=== PATIENT | male | born 1970 | race Caucasian/White ===

== ENCOUNTER 2023-02-22 14:05 | Observation (INO) | payer SELFPAY ==
[2023-02-22] VITALS (10 sets, daily range): BP systolic 110–172; BP diastolic 79–101; PULSE 73–99; RESP 16–22; TEMP 36.9–37; O2SAT 96–100; BMI 22.2
--- NOTE | 2023-02-22 14:14 | ED_ITS ---
HPI - GI Bleed General: Chief complaint: GI Bleed Stated complaint: GI Bleed Time Seen by Provider: 02/22/23 14:06 History of Present Illness: This patient is a 52 year old presenting with two days of epigastric pain and coffee ground emesis. He has not been able to eat and has been drinking fluids, but throws them up. He denies blood in the emesis, but it is black and granular. He has not had a BM since the symptoms started. He denies chest pain, SOB, lightheadedness. He denies prior surgeries. He denies any PMH and takes no medications. He does not drink alcohol. He thinks that he probably has had ulcers based on symptoms - but he doesn't take any medications for the symptoms. He went to the clinic in [place] and was sent to the ED for evaluation of a suspected GI bleed. [facility] ED PFSH: Medical History (Updated 02/22/23 @ 23:49 by Fela Hogue MD) Lactic acid acidosis Physical Exam 2 Const: COMMON NORMALS: no acute distress, patient oriented x3, no limitations and alert GENERAL APPEARANCE: cooperative, comfortable and appears older than stated age HENMT: HEAD & SCALP: normal to inspection FACE & SINUS: normal facial exam TEETH & GINGIVA: Yes poor dentition Eye: GENERAL EYE: appearance normal, both eyes and all related structures Neck/C-Spine: COMMON NORMALS: supple, no meningeal signs and no JVD Chest: COMMONS NORMALS: normal inspection of the chest Resp: COMMON NORMALS: normal respiratory effort, No use of accessory muscles and clear to auscultation bilaterally AUSCULTATION: clear to auscultation bilaterally Cardio: COMMON NORMALS: no JVD, regular rate, regular rhythm and No murmurs p resent (Cardio) RATE: regular rate RHYTHM: regular rhythm GI: COMMON NORMALS: Normal to inspection, nondistended, normoactive bowel sounds present, Soft to palpation and non-tender INSPECTION: Yes normal to inspection AUSCULTATION: Yes normoactive bowel sounds PALPATION: Yes Soft to palpation Back/Pelvis: COMMON NORMALS: thoracic and lumbar spine normal to inspection Extremity: COMMON NORMALS: normal to inspection Neuro: COMMON NORMALS: patient oriented x3, moves all extremities, no focal motor deficits and no sensory deficits noted SENSORIUM/ORIENTATION: Yes alert MENINGEAL SIGNS: Yes no meningeal signs Psych: COMMON NORMALS: mental status grossly normal, cooperative and normal affect Skin: COMMON NORMALS: no rashes or lesions noted and turgor normal GENERAL SKIN EXAM: no rashes or lesions noted, turgor normal and pallor Course Vital Signs: Vital signs: Vital Signs Temperature 98.6 F 02/22/23 19:49 Pulse Rate 94 02/22/23 19:49 Respiratory Rate 16 02/22/23 19:49 Blood Pressure 119/79 02/22/23 19:49 Pulse Oximetry 98 02/22/23 19:49 Oxygen Delivery Me thod Room Air 02/22/23 21:15 MDM - GI Bleed Medical Decision Making Awake, alert and in no distress. He was given zofran in the ambulance and reports improvement in his nausea. Vitals are good - abdomen is benign. He is having ongoing vomiting for two days, and has epigastric burning associated wtih black coffee ground emesis. Labs including CBC, CMP, LFT, PT, lactic pending. Pepcid IV given. He may require hospitalization for further evaluation of the source of the coffee ground emesis. CT with thickening of the esophagus and stomach, fluid filled suggested delayed emptying or obstruction. Discussed with motion graphics designer surgery - they recommend admit to hospitalist. Likely IV fluids, PPIs, possible scope in the morning. Lab Data 02/22/23 19:55 02/22/23 14:50 Radiology Impressions Abdomen/Pelvis CT 02/22/23 15:25 IMPRESSION: 1. Mild diffuse fatty infiltration liver. 2. Fluid distended distal esophagus with small esophageal hiatal hernia. This can be followed up with endoscopy. 3. Submucosal enhancement in the distal esophagus and stomach compatible with esophagitis and gastritis. 4. Fluid distended stomach with air-fluid level. 5. Patulous rectosigmoid with constipation. 6. Normal appendix in the RIGHT lower quadrant. 7. No other acute findings. Chest X-Ray 02/22/23 18:03 IMPRESSION: 1. No acute cardiopulmonary process. 2. Incidental/nonacute findings are listed in the report. Laboratory Results WBC 20.9 10^3/uL (4.0-10.0) H 02/22/23 14:50 RBC 5.27 10^6/uL (4.1-5.3) 02/22/23 14:50 Hgb 16.6 g/dL (11.7-16.6) 02/22/23 14:50 Hct 49.8 % (42.0-52.0) 02/22/23 14:50 MCV 94.5 fl (80-94) H 02/22/23 14:50 MCH 31.5 pg (28.0-34.0) 02/22/23 14:50 MCHC 33.3 g/dL (30.0-36.0) 02/22/23 14:50 RDW 13.2 % (12.1-15.1) 02/22/23 14:50 Plt Count 328 10^3/cmm (130-400) 02/22/23 14:50 MPV 10.3 fL (7.4-10.4) 02/22/23 14:50 Neut % (Auto) 78.9 % 02/22/23 14:50 Lymph % (Auto) 11.5 % 02/22/23 14:50 [place] % (Auto) 9.0 % 02/22/23 14:50 Eos % (Auto) 0.1 % 02/22/23 14:50 Baso % (Auto) 0.2 % 02/22/23 14:50 Neut # (Auto) 16.50 10^3/uL (1.8-7.7) H 02/22/23 14:50 Lymph # (Auto) 2.4 10^3/uL (0.8-4.8) 02/22/23 14:50 [place] # (Auto) 1.9 10^3/uL (0.2-0.9) H 02/22/23 14:50 Eos # (Auto) 0.0 10^3/uL (0.0-0.8) 02/22/23 14:50 Baso # (Auto) 0.0 10^3/uL (0.0-0.1) 02/22/23 14:50 Nucleated RBC % (auto) 0 % 02/22/23 14:50 Nucleated RBCs # 0.0 /100WBC 02/22/23 14:50 ESR < 1 mm/hr (0-10) 02/22/23 14:50 PT 12.60 SECONDS (12.1-14.9) 02/22/23 14:50 INR 0.92 (0.8-1.2) 02/22/23 14:50 Sodium 141 mmol/L (136-145) 02/22/23 14:50 Potassium 3.4 mmol/L (3.5-5.1) L 02/22/23 14:50 Chloride 95 mmol/L (98-107) L 02/22/23 14:50 Carbon Dioxide 31 mmol/L (22-29) H 02/22/23 14:50 Anion Gap 18.4 (5-19) 02/22/23 14:50 BUN 28 mg/dL (6-20) H 02/22/23 14:50 Creatinine 0.9 mg/dL (0.7-1.2) 02/22/23 14:50 GFR Calculation 88.6 mL/min (90-130) L 02/22/23 14:50 Glucose 103 mg/dL (65-115) 02/22/23 14:50 Calculated Osmolality 298 mOsm/kg (285-295) H 02/22/23 14:50 Lactic Acid 4.4 mmol/L (0.5-2.2) H* 02/22/23 14:50 Calcium 9.0 mg/dL (8.5-10.5) 02/22/23 14:50 Total Bilirubin 0.4 mg/dL (0.15-1.2) 02/22/23 14:50 AST 13 U/L (0-40) 02/22/23 14:50 ALT 13 U/L (0-41) 02/22/23 14:50 Alkaline Phosphatase 65 U/L (40-130) 02/22/23 14:50 C-Reactive Protein 3.0 mg/L (0.0-4.9) 02/22/23 14:50 C-Reactive Protein Cancelled 02/22/23 14:50 Total Protein 6.3 g/dL (6.6-8.7) L 02/22/23 14:50 Albumin 4.1 g/dL (3.5-5.2) 02/22/23 14:50 Globulin 2.2 g/dL (1.3-4.6) 02/22/23 14:50 Lipase 19 U/L (13-60) 02/22/23 14:50 Procalcitonin 0.04 ng/mL (0-0.5) 02/22/23 14:50 Urine Color Yellow (Yellow) 02/22/23 17:13 Urine Appearance Clear (CLEAR) 02/22/23 17:13 Urine pH 8 (5-7) H 02/22/23 17:13 Ur Specific [place] 1.010 (1.005-1.030) 02/22/23 17:13 Urine Protein Neg (Negative) 02/22/23 17:13 Urine Glucose (UA) Norm (Normal) 02/22/23 17:13 Urine Ketones 1+ (Negative) H 02/22/23 17:13 Urine Blood Neg (Negative) 02/22/23 17:13 Urine Nitrate Negative (Negative) 02/22/23 17:13 Urine Bilirubin Neg (Negative) 02/22/23 17:13 Prot Sulfosalicylic Acd Negative (Negative) 02/22/23 17:13 Urine Urobilinogen Norm mg/dL (Negative) 02/22/23 17:13 Ur Leukocyte Esterase Negative (Negative) 02/22/23 17:13 Discharge Plan Discharge Patient Disposition: Admitted As Inpatient Admit Provider: William Andrade Clinical Impression: GI bleed, Leukocytosis, Gastritis, Esophagitis, Elevated lactic acid level Condition: Stable Coding Level of Care Code ED [employer] for Rosemarie Hernandez
[2023-02-22] MEDS: sodium chloride 0.9% 1,000 ML 999 ML IV (14:22)
[2023-02-22] MEDS: famotidine 20 mg/2 mL INJ 40 MG IVP (14:22)
[2023-02-22 14:58] LABS: Basophils % 0.2 %; Eosinophils % 0.1 %; Hematocrit 49.8 % (42.0-52.0); Hemoglobin 16.6 g/dL (11.7-16.6); Lymphocytes # 2.4 10^3/uL (0.8-4.8); Lymphocytes % 11.5 %; Mean Corpuscular HGB Conc 33.3 g/dL (30.0-36.0); Mean Corpuscular Hemoglobin 31.5 pg (28.0-34.0); Mean Corpuscular Volume 94.5 fl (80-94); Mean Platelet Volume 10.3 fL (7.4-10.4); Monocytes # 1.9 10^3/uL (0.2-0.9); Neutrophils % 78.9 %; Nucleated Red Blood Cells % 0 %; Platelet Count 328 10^3/cmm (130-400); Red Blood Count 5.27 10^6/uL (4.1-5.3); Red Cell Distribution Width 13.2 % (12.1-15.1); White Blood Count 20.9 10^3/uL (4.0-10.0)
[2023-02-22 15:10] LABS: INR 0.92 (0.8-1.2)
[2023-02-22 15:14] LABS: Alanine Aminotransferase 13 U/L (0-41); Albumin Level 4.1 g/dL (3.5-5.2); Alkaline Phosphatase 65 U/L (40-130); Anion Gap 18.4 (5-19); Aspartate Amino Transferase 13 U/L (0-40); Blood Urea Nitrogen 28 mg/dL (6-20); Carbon Dioxide 31 mmol/L (22-29); Chloride 95 mmol/L (98-107); Globulin 2.2 g/dL (1.3-4.6); Glomerular Filtration Rate 88.6 mL/min (90-130); Glucose 103 mg/dL (65-115); Lipase 19 U/L (13-60); Osmolality Calculated 298 mOsm/kg (285-295); Potassium 3.4 mmol/L (3.5-5.1); Sodium 141 mmol/L (136-145); Total Bilirubin 0.4 mg/dL (0.15-1.2); Total Protein 6.3 g/dL (6.6-8.7)
[2023-02-22 15:16] LABS: Lactic Sepsis W/Reflex 4.4 mmol/L (0.5-2.2)
--- NOTE | 2023-02-22 15:25 | CT_ITS ---
WS: [id number] CT ABDOMEN PELVIS TECHNIQUE: Contrast-enhanced CT of the abdomen and pelvis with coronal and sagittal reformatted image s. CLINICAL INFORMATION: abdominal pain COMPARISON: None. DLP: 357.[address] scans at [facility] use at least one of these dose optimization techniques: automated e xposure control; mA and/or kV adjustment per patient size (includes targeted exams where dose is matc hed to clinical indication); or iterative reconstruction. FINDINGS: Diffuse fatty infiltration liver. Normal portal vein and splenic vein. Normal gallbladder. Splenic gr anulomas. Normal pancreatic parenchymal enhancement. Normal caliber abdominal aorta. Celiac and SMA a re patent. Diffuse submucosal enhancement with thickening at the GE junction with small esophageal hiatal hernia . Achalasia distal esophagus. This can be followed up with endoscopy. Fluid distended stomach with ai r-fluid level with submucosal enhancement compatible with gastritis. Enhancement in the distal esopha cheryl compatible with esophagitis. Patulous distended rectosigmoid with constipation. Tortuous sigmoid colon. No evidence of high-grade small or large bowel obstruction. Normal appendix RIGHT lower quadrant. Normal renal parenchymal enha ncement. No hydronephrosis. Adrenal glands are normal. Mild disc space narrowing L5-S1. Lung bases ar e well aerated. CT/CT abdomen pelvis w con* [id number] IMPRESSION: 1. Mild diffuse fatty infiltration liver. 2. Fluid distended distal esophagus with small esophageal hiatal hernia. This can be followed up with endoscopy. 3. Submucosal enhancement in the distal esophagus and stomach compatible with esophagitis and gastritis. 4. Fluid distended stomach with air-fluid level. 5. Patulous rectosigmoid with constipation. 6. Normal appendix in the RIGHT lower quadrant. 7. No other acute findings.
[2023-02-22] MEDS: iohexol 350 mg/mL 500 mL Btl (per mL) IV (15:41)
[2023-02-22 16:42] LABS: Reflex Lactate Order REFLEX LACTIC ORDERD
[2023-02-22 17:36] LABS: Add Urine Microscopic? NO; Charge for UA Resulting for Rev
[2023-02-22 17:40] LABS: Urine Appearance Clear (CLEAR); Urine Color Yellow (Yellow); pH Urine 8 (5-7)
[2023-02-22 17:41] LABS: Bilirubin Urine Neg (Negative); Blood Urine Neg (Negative); Glucose Urine UA Norm (Normal); Leukocyte Esterase Urine Negative (Negative); Nitrate Urine Negative (Negative); Protein Urine Neg (Negative); Urobilinogen Urine Norm (Negative)
[2023-02-22 17:45] LABS: Ketones Urine 1+ (Negative)
[2023-02-22 17:46] LABS: Sulfosalicylic Acid Urine Negative (Negative)
--- NOTE | 2023-02-22 18:03 | XRR_ITS ---
PROCEDURE INFORMATION: Exam: XR Chest Exam date and time: 02/22/2023 6:08 PM Age: 52 years old Clinical indication: Wheezing and other: Poss aspiration; Additional info: N/v and rule out aspiration pneumonia TECHNIQUE: Imaging protocol: Radiologic exam of the chest. Views: 2 views. COMPARISON: CT abdomen pelvis w con* [id number] 02/22/2023 3:40 PM FINDINGS: Lungs: Calcified granulomas in the left upper lobe. Lungs are clear bilaterally. Pleural spaces: No pleural effusion. No pneumothorax. Heart/Mediastinum: Mediastinal and left hilar calcified lymph nodes. Cardiac silhouette and mediastinal contours are unremarkable. Bones/joints: Unremarkable for age. XR/XR chest 2V* [id number] IMPRESSION: 1. No acute cardiopulmonary process. 2. Incidental/nonacute findings are listed in the report.
[2023-02-22 18:10] LABS: Erythrocyte Sedimentation Rate < 1 mm/hr (0-10)
--- NOTE | 2023-02-22 18:23 | PM.HP ---
Providers/Chief Complaint Admitting Physician: William Andrade MD Primary Care Provider: Betty Ambriz NP Chief Complaint: GI Bleed History of Present Illness Bartolo Loving is a 52 year old male with no kown significant PMH came in today with c/o epigastric pain accompanied with dark vomiting started about 2 days back,according to the patient he vomits every time he tries to eat or drink anything,he has denied any chest pain,BRBPR,does complain of dark stool, has denied any alcohol use, NSAID use, sick contact,C.T abdomen and pelvis has shown : Mild diffuse fatty infiltration liver.Fluid distended distal esophagus with small esophageal hiatal hernia. This can be followed up with endoscopy. Submucosal enhancement in the distal esophagus and stomach compatible with esophagitis and gastritis.Fluid distended stomach with air-fluid level. Patulous rectosigmoid with constipation.Lab work is relevant for foe elevated wbc as well as elevated lactic acid along with hypokalemia, H&H is normal, surgery was consulted by ER for possible EGD in am and was started on protonix as well as carafate.Currnetly he is also on I.V Fluids as well. Review of Systems General: Reports: 10 or more systems reviewed and unremarkable except in HPI and below Const: Denies: fever(s), chills, body aches, change in appetite or diaphoresis Card: Denies: palpitations, edema, swelling of feet/ankles, dyspnea on exertion, orthopnea or leg pain with exertion Resp: Denies: dyspnea, productive cough, wheezing or pain on inspiration GI: Reports: abdominal pain and vomiting; Denies: nausea, diarrhea or constipation : Denies: flank pain or difficulty urinating Musc: Denies: back pain, extremity pain or extremity swelling Neuro: Denies: headache(s), difficulty walking or confusion Medications/Allergies Home Medications Medication Instructions Recorded Confirmed Last Taken Type No Known Home Medications 02/22/23 02/22/23 Unknown History Allergies Allergy/AdvReac Type Severity Reaction Status Date / Time morphine Allergy Unconscious Verified 02/22/23 15:27 PFSH Acute PFSH: Medical History (Updated 02/22/23 @ 18:27 by William Andrade MD) Lactic acid acidosis Vitals/I&O/Wt Last Vital Signs Temp 98.4 F 02/22/23 14:06 Pulse 94 02/22/23 17:47 Resp 22 H 02/22/23 14:54 BP 148/96 02/22/23 17:47 Pulse Ox 96 02/22/23 17:47 O2 Del Method Room Air 02/22/23 17:47 02/22/23 02/22/23 02/22/23 06:59 14:59 22:59 Intake Total 1000 / 1000 Balance 1000 / 1000 Weight last 48 hrs Weight 62.596 kg Physical Exam Const: COMMON NORMALS: patient oriented x3 HENMT: COMMON NORMALS: normocephalic and atraumatic HEAD & SCALP: normocephalic and atraumatic Resp: COMMON NORMALS: clear to auscultation bilaterally AUSCULTATION: clear to auscultation bilaterally Cardio: COMMON NORMALS: regular rate, regular rhythm, S1 normal heart sound present, S2 normal heart sound present, No gallops present (Cardio), No murmurs present (Cardio), No rub (Cardio) and Peripheral pulses 2+ throughout RATE: regular rate RHYTHM: regular rhythm HEART SOUNDS: S1 normal heart sound present and S2 normal heart sound present PERIPHERAL PULSES: Peripheral pulses 2+ throughout GI: COMMON NORMALS: Normal to inspection, nondistended, normoactive bowel sounds present, Soft to palpation, non-tender, No hepatosplenomegaly present and no masses AUSCULTATION: Yes normoactive bowel sounds PALPATION: Yes Soft to palpation and Yes No hepatosplenomegaly present RECTAL EXAM: Yes deferred Extremity: COMMON NORMALS: no clubbing, cyanosis or edema and no pedal edema Neuro: COMMON NORMALS: patient oriented x3 Data 02/22/23 19:55 02/22/23 14:50 A&P Assessment and plan (1) GI bleed: (2) Leukocytosis: (3) Lactic acid acidosis: Plan 52 year old male with no kown significant PMH came in today with c/o epigastric pain accompanied with dark vomiting started about 2 days back,according to the patient he vomits every time he tries to eat or drink. Assessment : Possible G/I Bleed : Curretly NPO I.V Protonix, carafate as well as on I.V Fluids. Monitor H&H Esophagitis as well as gastritis : Plan as above Leukocytosis :Combination of reactive as well as 2/2 dehydration Follow blood culture Continue I.V Hydration monitor CBC Elevated lactic acid : repeat lactic acid is down trending continue I.V Hydration Code Status:Full Code DVT PPX: ON SCD Attestations Medical Necessity Statement*: Patient need to be in hospital for the management of G/I Bleed Coding Level of Care Code Acute Code for Chg Fwd Diagnoses GI bleed K92.2 Leukocytosis D72.829 Lactic acid acidosis E87.20
[2023-02-22 18:43] LABS: Procalcitonin 0.04 ng/mL (0-0.5)
[2023-02-22 19:22] LABS: Lactic Acid level (Lactate) 2.7 mmol/L (0.5-2.2)
[2023-02-22] MEDS: sodium chlor 0.9% + KCl 20 mEq 20 MEQ/1,000 ML BAG 100 MEQ IV (19:36)
[2023-02-22] MEDS: pantoprazole 40 mg SDV IVP (19:49)
[2023-02-22 20:06] LABS: Hematocrit 48.5 % (42.0-52.0)
[2023-02-22] MEDS: sucralfate 1 gm/10 mL Oral Liq UDC PO (20:45)
--- NOTE | 2023-02-22 21:41 | P.CONIM_ITS ---
Providers/Reason For Consult Consulting Physician/Specialty*: Shawn Castaneda MD general surgery Reason for Consult*: coffee ground emesis and dysphagia Requesting Physician: see below Attending Physician: William Andrade MD Primary Care Provider: Betty Ambriz NP History of Present Illness History of Present Illness Bartolo oLving is a 52 year old male who last ate two days ago chicken with no appetite. He can't keep liquids down and had at least two episodes of coffee ground emesis. He denies pain, F/C/S, productive cough or SOB. He normally has stool every few days and last one two days ago with no blood in it but loose green. He has never had any procedures or endoscopy done before. He is not on any strong blood thinners or on any medications. He does he has long standing heartburn but takes nothing for it. He does feel like anythin got stuck in distal esophagus. He smokes daily but does not drink alcohol. He denies aspiring, NSAID, steroid usuage. CT scan is showing fluid level in distal esoph korina and fluid in stomach. He denies family history of GI tract cancer. Mom had breast and ovarian cancer. He denies any recent unexplained weight loss. His WBC is elevated. He denies any recent infections. He denies any food allergies or family history of crohn's disease. He does not take any medicines so denies any pills getting stuck in esophagus. Review of Systems Narrative: Constitutional: denies rigors, singnificant weight gain, increased appetite HEENT: denies chronic cough, blurry vision, excessive tearing, eye pain, flashing lights, odynophagia, painful mastication, change in voice, change in taste, chronic sore throat, hypersalivation Heart: denies racing heart, palpitations, othropnea, PND Lungs: denies hemoptysis, pain with deep inspiration, chronic bronchitis GI: denies hematemesis, hematochezia, dysphagia, tenesmus : denies polyuria, hematuria, painful micturation Musculoskeletal: denies hemarthrosis, Muscle wasting, change in amubation Neuro: denies new onset syncope, dysesthesia, dysequilibrium, ptosis eyelid or face SKin: denies new onset hyperalgia, new rash new cyanosis Endocrine: denies new polyuria, polydipsia, polyphagia, heat intolerance, excessive energy Hem/Onc: denies new petechiae, swollen glands, new excessive epstaxis Psych: denies racing thought Medications/Allergies Home Medications Medication Instructions Recorded Confirmed Last Taken Type No Known Home Medications 02/22/23 02/22/23 Unknown History Allergies Allergy/AdvReac Type Severity Reaction Status Date / Time morphine Allergy Unconscious Verified 02/22/23 15:27 Current Medications Generic Name Dose Route Start Last Admin Trade Name Freq PRN Reason Stop Dose Admin Potassium Chloride/Sodium Chloride 20 meq in 1,000 mls @ 100 mls/hr 02/22/23 18:30 02/22/23 19:36 Sodium Chlor 0.9% + Kcl 20 Meq IV 100 mls/hr .Q10H KARINE Administration Pantoprazole Sodium 40 mg 02/22/23 18:15 02/22/23 19:49 Pantoprazole 40 Mg Sdv IVP 40 mg Q12H KARINE Administration Sucralfate 1 gm 02/22/23 21:00 02/22/23 20:45 Sucralfate 1 Gm/10 Ml Oral Liq Udc PO 1 gm AC&BEDTIME KARINE Administration PFSH Acute PFSH: Medical History (Updated 02/22/23 @ 18:27 by William Andrade MD) Lactic acid acidosis Vitals/I&O/Wt Last Vital Signs Temp 98.6 F 02/22/23 19:49 Pulse 94 02/22/23 19:49 Resp 16 02/22/23 19:49 BP 119/79 02/22/23 19:49 Pulse Ox 98 02/22/23 19:49 O2 Del Method Room Air 02/22/23 19:49 02/22/23 02/22/23 02/22/23 06:59 14:59 22:59 Intake Total 1000 / 1000 Balance 1000 / 1000 Weight last 48 hrs Weight 138 lb Physical Exam Narrative: Patient is a well developed well nourished and in NAD and is afebrile with vitals stable and is answering questions appropriately with a normal affect and is alert and oriented x3 HEENT: normocephalic with normal external ears and nonicteric, oral mucosa moist and dentition normal for age, trachea midline with no large masses vi sualized Heart: RRR, no gallops murmurs or rubs, normal PMI with no thrills Lungs: normal excursions, no loud audible wheezing, no subcutaneous emphysema Abdomen: nondistended, no gross hepatosplenomegaly, no masses, no rigidity or rebound, no loud borborygmi Neuro: nonfocal, DUMONT, grossly normal sensation Musculoskeletal: good muscle tone, no fasciculations, normal gait Skin: pink warm and dry with no rashes or ecchymosis Vascular: good radial pulses, no ulceration, less than 2 second capillary refill in hand : deferred Data 02/22/23 19:55 02/22/23 14:50 Micro: Microbiology 02/22/23 19:55 Blood Culture - Preliminary Blood SPECIMEN COLLECTED 02/22/23 18:23 Blood Culture - Preliminary Blood SPECIMEN COLLECTED A&P Assessment and plan (1) GI bleed: Patient with history of coffee ground emesis and dysphagia and heartburn with very elevated WBC. Differential includes esophagitis/gastritis and PUD. Would not expect the elevated WBC which could be from inflammation. IBD and crohn's disease could cause significant inflammation and cause pain and potentially some mild bleeding. WIll check CRP and ESR and procalcitonin and fecal calciiprotentin. Reflus with resulting stricture or esophagitis and esophageal webs and rings could be a cause but again would not expect such an elevated WBC. Patine's WBC may be due to some other source of infection such as aspiration pneumonia. CXR is pending. Some type of malignancy is also in the differential including GI lymphoma. Patient has agreed to upper endoscopy with possible biopsy to R/O malignancy, eosinophilic esophagitis, PUD, strictures/rings/webs. Achalsia would require manometry. There is a possibility no definite diagnosis will be made immediately afte EGD and then patient will need to follow up with GI for further testing and treatment. Patient understands risks, benefits and alternative to procedure. RIsks include bleeding, infection, cardiopulmonary problems, missed lesion, more procedure, aspiration, recurrence. He understands he may need dilation of any narrowings in the future. Start on PPI and carafate. Coding Level of Care Code 02519 Diagnoses GI bleed K92.2
[2023-02-23] VITALS (11 sets, daily range): BP systolic 80–132; BP diastolic 59–89; PULSE 61–91; RESP 16–18; TEMP 36.1–37.2; O2SAT 95–99
[2023-02-23] MEDS: sodium chlor 0.9% + KCl 20 mEq 20 MEQ/1,000 ML BAG 100 MEQ IV (05:46)
[2023-02-23 06:19] LABS: Basophils # 0.1 10^3/uL (0.0-0.1); Basophils % 0.7 %; Eosinophils # 0.2 10^3/uL (0.0-0.8); Eosinophils % 1.2 %; Hemoglobin 15.2 g/dL (11.7-16.6); Lymphocytes # 3.6 10^3/uL (0.8-4.8); Lymphocytes % 29.1 %; Mean Corpuscular HGB Conc 33.8 g/dL (30.0-36.0); Mean Corpuscular Hemoglobin 32.5 pg (28.0-34.0); Mean Corpuscular Volume 96.4 fl (80-94); Mean Platelet Volume 10.3 fL (7.4-10.4); Monocytes % 8.4 %; Neutrophils # 7.44 10^3/uL (1.8-7.7); Neutrophils % 60.3 %; Nucleated Red Blood Cells % 0 %; Platelet Count 271 10^3/cmm (130-400); Red Blood Count 4.67 10^6/uL (4.1-5.3); Red Cell Distribution Width 13.7 % (12.1-15.1); White Blood Count 12.4 10^3/uL (4.0-10.0)
[2023-02-23 06:38] LABS: Alanine Aminotransferase 12 U/L (0-41); Albumin Level 3.6 g/dL (3.5-5.2); Alkaline Phosphatase 58 U/L (40-130); Aspartate Amino Transferase 13 U/L (0-40); Blood Urea Nitrogen 26 mg/dL (6-20); Calcium 8.4 mg/dL (8.5-10.5); Carbon Dioxide 27 mmol/L (22-29); Chloride 105 mmol/L (98-107); Globulin 1.9 g/dL (1.3-4.6); Glomerular Filtration Rate 88.6 mL/min (90-130); Glucose 105 mg/dL (65-115); Magnesium 1.9 mg/dL (1.7-2.3); Osmolality Calculated 295 mOsm/kg (285-295); Phosphorus 2.4 mg/dL (2.5-4.5); Sodium 140 mmol/L (136-145); Total Bilirubin 0.4 mg/dL (0.15-1.2); Total Protein 5.5 g/dL (6.6-8.7)
[2023-02-23 06:43] LABS: Anion Gap 12.3 (5-19); Potassium 4.3 mmol/L (3.5-5.1)
[2023-02-23] MEDS: pantoprazole 40 mg SDV IVP (08:10)
[2023-02-23] MEDS: sodium chloride 0.9% 1,000 ML 30 ML IV (09:01)
--- NOTE | 2023-02-23 09:28 | ANES.PREANE2 ---
Pre-Anesthetic Assessment Height/Weight: Height 1.68 m Weight 62.596 kg Temp Pulse Resp BP Pulse Ox O2 Del Method 97 F L 85 18 106/72 95 Room Air 02/23/23 08:52 02/23/23 08:52 02/23/23 08:52 02/23/23 08:52 02/23/23 08:52 02/23/23 08:52 Preop Diagnosis: GI Bleed Operation Date: 02/23/23 09:30 Proposed Procedures p EGD with possible biopsy(Not Applicable) - Shawn Castaneda MD Familial anesthetic complications: none Was Beta Rodrigo taken within 24 hours: N/A Was Clonidine taken within 24 hours: N/A Last intake: Intake Last Liquid Date 02/22/23 Last Liquid Time 22:00 Last Solid Date 02/19/23 Social Tobacco (1ppd) and No alcohol smokes pot Exam alert and oriented x 3 Airway Submandibular: within normal limits Cervical ROM: within normal limits Mallampati: Class I Dentition: chipped Comments: Comments: very poor dentition History/ROS No significant complaints Medications/Allergies Home Medications Medication Instructions Recorded Confirmed Last Taken Type No Known Home Medications 02/22/23 02/22/23 Unknown History Allergies Allergy/AdvReac Type Severity Reaction Status Date / Time morphine Allergy Unconscious Verified 02/22/23 15:27 Current Medications Generic Name Dose Route Start Last Admin Trade Name Sirisha PRN Reason Stop Dose Admin Potassium Chloride/Sodium Chloride 20 meq in 1,000 mls @ 100 mls/hr 02/22/23 18:30 02/23/23 05:46 Sodium Chlor 0.9% + Kcl 20 Meq IV 100 mls/hr .Q10H KARINE Administration Sodium Chloride 1,000 mls @ 30 mls/hr 02/23/23 09:00 02/23/23 09:01 Sodium Chloride 0.9% IV 02/24/23 08:59 30 mls/hr .Q24H KARINE Administration Pantoprazole Sodium 40 mg 02/22/23 18:15 02/23/23 08:10 Pantoprazole 40 Mg Sdv IVP 40 mg Q12H KARINE Administration Sucralfate 1 gm 02/22/23 21:00 02/22/23 20:45 Sucralfate 1 Gm/10 Ml Oral Liq Udc PO 1 gm AC&BEDTIME KARINE Administration PFSH Anesthesia Medical History (Updated 02/22/23 @ 23:49 by Fela Hogue MD) Lactic acid acidosis Data Anesthesia 02/23/23 05:59 02/23/23 05:59 Short CBC 02/22/23 02/22/23 02/23/23 Range/Units 14:50 19:55 05:59 WBC 20.9 H 12.4 H (4.0-10.0) 10^3/uL Hgb 16.6 16.0 15.2 (11.7-16.6) g/dL Hct 49.8 48.5 45.0 (42.0-52.0) % MCV 94.5 H 96.4 H (80-94) fl Plt Count 328 271 (130-400) 10^3/cmm Neut % (Auto) 78.9 60.3 % Neut # (Auto) 16.50 H 7.44 (1.8-7.7) 10^3/uL BMP 02/22/23 02/23/23 14:50 05:59 Sodium 141 140 Potassium 3.4 L 4.3 Chloride 95 L 105 Carbon Dioxide 31 H 27 BUN 28 H 26 H Creatinine 0.9 0.9 Glucose 103 105 Calcium 9.0 8.4 L Liver Function 02/22/23 02/23/23 Range/Units 14:50 05:59 Total Bilirubin 0.4 0.4 (0.15-1.2) mg/dL AST 13 13 (0-40) U/L ALT 13 12 (0-41) U/L Alkaline Phosphatase 65 58 (40-130) U/L Albumin 4.1 3.6 (3.5-5.2) g/dL Urine 02/22/23 Range/Units 17:13 Urine Color Yellow (Yellow) Urine Appearance Clear (CLEAR) Urine pH 8 H (5-7) Ur Specific [place] 1.010 (1.005-1.030) Urine Protein Neg (Negative) Urine Glucose (UA) Norm (Normal) Urine Ketones 1+ H (Negative) Urine Nitrate Negative (Negative) Urine Bilirubin Neg (Negative) Ur Leukocyte Esterase Negative (Negative) Coags 02/22/23 02/22/23 02/22/23 14:50 14:50 14:50 ESR < 1 PT 12.60 INR 0.92 C-Reactive Protein 3.0 02/22/23 14:50 ESR PT INR C-Reactive Protein Cancelled Microbiology 02/22/23 19:55 Blood Culture - Preliminary Blood SPECIMEN COLLECTED 02/22/23 18:23 Blood Culture - Preliminary Blood SPECIMEN COLLECTED Cardiac Studies: No Data to Display
--- NOTE | 2023-02-23 10:30 | P.OP_ITS ---
Operative Report Date of procedure: February 23, 2023 Pre-op diagnosis: Preop Diagnosis GI Bleed Post-op diagnosis: Same with hiatal hernia, severe distal esophagitis with erosions, mild gastritis and moderate duodenitis of bulb Procedure done: Upper endoscopy with multiple biopsies Specimens removed/disposition: forcep x1 D2, forcep x1 D1, forcep antrum x2 with one sent for DANIELE testing, forcepx1 mid body, fundus forcep x1, cardia forcep x1, distal esophagus forcep x1, mid esophagus forcep x1, proximal esophagus forcep x1 Surgeon: Jos Castaneda MD Anesthesia: Other (IV sedation) Complications: none Brief History: Patient with 2 day history of coffee ground emesis, hiccups, and dysphagia to even liquids. He has history of heartburn not treated per patient. He has never had endoscopy before. He understands risks, benefits and alternatives to procedure and wishes to proceed. Risks include bleeding, infection, cardiopulmonary problems, perforation, missed lesion, more procedures, recurrence, aspiration Procedure: After adequate IV sedation, patient was placed in left lateral decubitus position. Under direct vision, upper endoscope was advanced into esophagus. There was no blood, retained food or masses seen. He had severe esophagitis with petechiae and 1-2 mm erosions covered with white fibrin and flat base. No adherent clot or exposed vessels seen. Z line was jagged and at about 40 cm. 3 cm hiatal hernia seen. Scope advanced into stomach not no retained food, fluid, old blood or fresh blood seen. Mild gastritis seen near antrum. Scope was advanced into duodenum and moderate duodenitis seen in bulb with no ulcer, masses, old or fresh blood seen. Villi seen grossly in second portion of duodenum. Random biopsies done in second portion of duodenum forcep x1, looking for chronic inflammation, celiac disease, eosinophilic inflammation. Likewise forcep biospies were done in duodenal bulb x1, antrum x2 (one sent for DANIELE testing), mid stomach body x1, fundus x1, cardia x1, distal esophagus x1, mid esophagus x1, proximal esophagus x1. No esophageal webs or rings seen. No tight strictures seen and scope easily went through GE junction area. The sto mach was not completely insufflated up because of hiccups presumably secondary to propofol so a small gastric ulcer may have been missed. As much air was aspirated out and patient tolerated procedure well. He will need to return in a week to go over biopsy results. He will need to be on reflux precautions and be on PPI. If he is found to be H. pylori positive then he will need antibiotic therapy for this.
--- NOTE | 2023-02-23 10:37 | ANE.PACU2 ---
Inpatient post-anesthesia follow up: Airway intact: Yes Vital signs: Temperature 97.1 F Pulse Rate 62 Respiratory Rate 17 Blood Pressure 114/73 Pulse Oximetry 99 Oxygen Delivery Me thod Room Air Oxygen Flow Rate Fraction of Inspir ed Oxygen Hydration adequate: Yes Nausea and vomiting: No Pain level: 2 Mental status: Baseline
[2023-02-23] MEDS: sucralfate 1 gm/10 mL Oral Liq UDC PO (11:09)
--- NOTE | 2023-02-23 11:12 | P.DS_ITS ---
Discharge Providers Date of Admission: 02/22/23 18:02 Date of Discharge: February 23, 2023 Attending Provider at Admission: William Andrade MD Attending Provider at Discharge: William Andrade MD Primary Care Provider: Betty Ambriz NP Diagnoses at Discharge Discharge Diagnosis (1) GI bleed: Status: Acute Reason for Visit Reason for Visit: GI Bleed Hospital Course Hospital Course 2 year old male with no kown significant PMH came in today with c/o epigastric pain accompanied with dark vomiting started about 2 days back,according to the patient he vomits every time he tries to eat or drink anything,he has denied any chest pain,BRBPR,does complain of dark stool, has denied any alcohol use, NSAID use, sick contact,C.T abdomen and pelvis has shown :?Mild diffuse fatty infiltration liver.Fluid distended distal esophagus with small esophageal hiatal hernia.Submucosal enhancement in the distal esophagus and stomach compatible with esophagitis and gastritis.Fluid distended stomach with air-fluid level.Pertinent lab work done Done at the time of admission showed leukocytosis, hypokalemia, elevated lactic acid, during hospital stay patient underwent EGD, which showed severe esophagitis gastritis and duodenitis, patient was kept on IV Protonix during hospital stay as well as Carafate, he was also kept on IV hydration, potassium replacement was done ,he was discharged on p.o. Protonix 40 twice daily as well as Carafate, and will follow surgery as outpatient, leukocytosis was improving, lactic acid had normalized at the time of discharge, possibly leukocytosis is coming from dehydration and and has somewhat reactive component secondary to stress. At the time of discharge, patient was not having any nausea vomiting, epigastric abdominal pain has improved, he was tolerating clear liquid diet, and was discharged in stable condition to home. Physical Exam Const: COMMON NORMALS: patient oriented x3 HENMT: COMMON NORMALS: normocephalic and atraumatic HEAD & SCALP: normocephalic and atraumatic Resp: COMMON NORMALS: clear to auscultation bilaterally AUSCULTATION: clear to auscultation bilaterally Cardio: COMMON NORMALS: regular rate, regular rhythm, S1 normal heart sound present, S2 normal heart sound present, No gallops present (Cardio), No murmurs present (Cardio), No rub (Cardio) and Peripheral pulses 2+ throughout RATE: regular rate RHYTHM: regular rhythm HEART SOUNDS: S1 normal heart sound present and S2 normal heart sound present PERIPHERAL PULSES: Peripheral pulses 2+ throughout GI: COMMON NORMALS: Normal to inspection, nondistended, normoactive bowel sounds present, Soft to palpation, non-tender, No hepatosplenomegaly present and no masses AUSCULTATION: Yes normoactive bowel sounds PALPATION: Yes Soft to palpation and Yes No hepatosplenomegaly present RECTAL EXAM: Yes deferred Extremity: COMMON NORMALS: no clubbing, cyanosis or edema and no pedal edema Neuro: COMMON NORMALS: patient oriented x3 Discharge Data Studies Completed and Pending Completed Studies During Hospitalization Category Date Time Status CT abdomen pelvis w con* [id number] Urgent Cat Scan 02/22/23 15:25 Completed XR chest 2V* [id number] Stat Exams 02/22/23 18:03 Completed Pending at discharge Category Date Time Status Blood Culture Routine Lab 02/22/23 19:55 Results Calprotectin Fecal Urgent Lab 02/22/23 17:50 Uncollected Complete Blood Count w/Auto AM LABS Lab 02/24/23 04:00 Ordered Complete Blood Count w/Auto AM LABS Lab 02/25/23 04:00 Ordered Comprehensive Metabolic Panel AM LABS Lab 02/24/23 04:00 Ordered Comprehensive Metabolic Panel AM LABS Lab 02/25/23 04:00 Ordered H. Pylori / DANIELE Test Routine Lab 02/23/23 10:06 Ordered Hemoglobin and Hematocrit Q8H Lab 02/23/23 12:00 Ordered Hemoglobin and Hematocrit Q8H Lab 02/23/23 20:00 Ordered Pathology: Surgical [PTH] Routine Pth 02/23/23 10:06 Ordered Radiology Impressions Abdomen/Pelvis CT 02/22/23 15:25 IMPRESSION: 1. Mild diffuse fatty infiltration liver. 2. Fluid distended distal esophagus with small esophageal hiatal hernia. This can be followed up with endoscopy. 3. Submucosal enhancement in the distal esophagus and stomach compatible with esophagitis and gastritis. 4. Fluid distended stomach with air-fluid level. 5. Patulous rectosigmoid with constipation. 6. Normal appendix in the RIGHT lower quadrant. 7. No other acute findings. Chest X-Ray 02/22/23 18:03 IMPRESSION: 1. No acute cardiopulmonary process. 2. Incidental/nonacute findings are listed in the report. Laboratory Results WBC 12.4 10^3/uL (4.0-10.0) H 02/23/23 05:59 RBC 4.67 10^6/uL (4.1-5.3) 02/23/23 05:59 Hgb 15.2 g/dL (11.7-16.6) 02/23/23 05:59 Hct 45.0 % (42.0-52.0) 02/23/23 05:59 MCV 96.4 fl (80-94) H 02/23/23 05:59 MCH 32.5 pg (28.0-34.0) 02/23/23 05:59 MCHC 33.8 g/dL (30.0-36.0) 02/23/23 05:59 RDW 13.7 % (12.1-15.1) 02/23/23 05:59 Plt Count 271 10^3/cmm (130-400) 02/23/23 05:59 MPV 10.3 fL (7.4-10.4) 02/23/23 05:59 Neut % (Auto) 60.3 % 02/23/23 05:59 Lymph % (Auto) 29.1 % 02/23/23 05:59 [place] % (Auto) 8.4 % 02/23/23 05:59 Eos % (Auto) 1.2 % 02/23/23 05:59 Baso % (Auto) 0.7 % 02/23/23 05:59 Neut # (Auto) 7.44 10^3/uL (1.8-7.7) 02/23/23 05:59 Lymph # (Auto) 3.6 10^3/uL (0.8-4.8) 02/23/23 05:59 [place] # (Auto) 1.0 10^3/uL (0.2-0.9) H 02/23/23 05:59 Eos # (Auto) 0.2 10^3/uL (0.0-0.8) 02/23/23 05:59 Baso # (Auto) 0.1 10^3/uL (0.0-0.1) 02/23/23 05:59 Nucleated RBC % (auto) 0 % 02/23/23 05:59 Nucleated RBCs # 0.0 /100WBC 02/23/23 05:59 ESR < 1 mm/hr (0-10) 02/22/23 14:50 PT 12.60 SECONDS (12.1-14.9) 02/22/23 14:50 INR 0.92 (0.8-1.2) 02/22/23 14:50 Sodium 140 mmol/L (136-145) 02/23/23 05:59 Potassium 4.3 mmol/L (3.5-5.1) 02/23/23 05:59 Chloride 105 mmol/L (98-107) 02/23/23 05:59 Carbon Dioxide 27 mmol/L (22-29) 02/23/23 05:59 Anion Gap 12.3 (5-19) 02/23/23 05:59 BUN 26 mg/dL (6-20) H 02/23/23 05:59 Creatinine 0.9 mg/dL (0.7-1.2) 02/23/23 05:59 GFR Calculation 88.6 mL/min (90-130) L 02/23/23 05:59 Glucose 105 mg/dL (65-115) 02/23/23 05:59 Calculated Osmolality 295 mOsm/kg (285-295) 02/23/23 05:59 Lactic Acid 1.0 mmol/L (0.5-2.2) 02/23/23 05:59 Lactic Acid (Sepsis) 2.7 mmol/L (0.5-2.2) H 02/22/23 18:23 Calcium 8.4 mg/dL (8.5-10.5) L 02/23/23 05:59 Phosphorus 2.4 mg/dL (2.5-4.5) L 02/23/23 05:59 Magnesium 1.9 mg/dL (1.7-2.3) 02/23/23 05:59 Total Bilirubin 0.4 mg/dL (0.15-1.2) 02/23/23 05:59 AST 13 U/L (0-40) 02/23/23 05:59 ALT 12 U/L (0-41) 02/23/23 05:59 Alkaline Phosphatase 58 U/L (40-130) 02/23/23 05:59 C-Reactive Protein 3.0 mg/L (0.0-4.9) 02/22/23 14:50 C-Reactive Protein Cancelled 02/22/23 14:50 Total Protein 5.5 g/dL (6.6-8.7) L 02/23/23 05:59 Albumin 3.6 g/dL (3.5-5.2) 02/23/23 05:59 Globulin 1.9 g/dL (1.3-4.6) 02/23/23 05:59 Lipase 19 U/L (13-60) 02/22/23 14:50 Procalcitonin 0.04 ng/mL (0-0.5) 02/22/23 14:50 Urine Color Yellow (Yellow) 02/22/23 17:13 Urine Appearance Clear (CLEAR) 02/22/23 17:13 Urine pH 8 (5-7) H 02/22/23 17:13 Ur Specific [place] 1.010 (1.005-1.030) 02/22/23 17:13 Urine Protein Neg (Negative) 02/22/23 17:13 Urine Glucose (UA) Norm (Normal) 02/22/23 17:13 Urine Ketones 1+ (Negative) H 02/22/23 17:13 Urine Blood Neg (Negative) 02/22/23 17:13 Urine Nitrate Negative (Negative) 02/22/23 17:13 Urine Bilirubin Neg (Negative) 02/22/23 17:13 Prot Sulfosalicylic Acd Negative (Negative) 02/22/23 17:13 Urine Urobilinogen Norm mg/dL (Negative) 02/22/23 17:13 Ur Leukocyte Esterase Negative (Negative) 02/22/23 17:13 Vitals Last Vital Signs Temp 97.5 F L 02/23/23 10:43 Pulse 61 02/23/23 10:43 Resp 18 02/23/23 10:43 BP 119/83 02/23/23 10:43 Pulse Ox 99 02/23/23 10:43 O2 Del Method Room Air 02/23/23 10:43 Discharge Plan Discharge Patient Disposition: Home Condition: Stable Prescriptions: New Protonix 40 mg tablet,delayed release (DR/EC) 40 mg PO BID Qty: 60 2RF Carafate 100 mg/mL suspension 1 g PO BID Qty: 1000 1RF Discharge Orders: Discharge Order (Routine); Ordered 02/23/23 Ordered By: William Andrade Referrals: Betty Ambriz NP [Primary Care Provider] - 03/01/23 2:00 pm [facility] [address] [place] [address] [facility] ([facility])) Shawn Castaneda MD [Physician] - 2 weeks ([facility]. MESSAGE SENT TO CLINIC.) Patient Instructions: Sucralfate (By mouth), Pantoprazole (By mouth), Esophagitis (DC), GI Discharge Instructions, Opioid Safety Discharge Attestations Time Spent in Discharge Care*: less than 30 min Quality Metrics Clinical Quality Measures [ No reported AMI, CVA or VTE this stay] Coding Level of Care Code Acute Code for Chg Fwd Diagnoses GI bleed K92.2
[2023-02-23 12:16] LABS: Hematocrit 43.7 % (42.0-52.0); Hemoglobin 14.1 g/dL (11.7-16.6)
--- NOTE | 2023-02-23 12:26 | PC.CHAP ---
Pastoral Care Encounter/Spiritual Assessment Type of Contact [] Declined plywood factory worker visit [] Patient/Family/Request visit [] Outpatient visit [x] Follow-up visit [] Physician referral [] Code/Alert [x] Routine visit [] Staff referral [] Actively dying [] Patient sleeping [] Family support [] [] Out of room [] Palliative care [] [x] Receiving care in room [] Pre-surgical visit [] Trauma [] Long length of stay [] ICU visit [] Other: Relational/Emotional Strength [] Patient feels connected with others/family/visitors/staff [] Distress [] Loneliness/isolation [] Abandonment Spirituality of Patient [] Person of Lizzy [] Attends Congregation of their Lizzy [] Believes in Prayer [] Reads Bible or Voodoo materials [] There are Spiritual issues to be addressed Child Welfare Assistant Interventions [] Prayer [] Active listening [] Non-anxious presence [] Spiritual/emotional support [] Crisis/trauma care [] Spiritual counseling [] Bereavement support [] Provided bereavement packet [] Provided Bible/devotional materials [] Provided toy/stuffed animal, coloring book to patient or family member [] Provided Communion [] Anointing/[place] [] Salvation [] Completed spiritual assessment [] Other: Impact on Illness or Injury [] Angry [] Fearful [] Anxious [] Often cries [] Exhaustion [] Unable to work [] Unable to attend holiness [] Unable to walk/stand [] Unable to read [] Unable to drive [] Unable to eat/drink [] Unable to sleep [] Unable to be with family [] Patient intubated [] Other: Summary with staff Time spent with patient 5 mins
[2023-02-28 12:49] LABS: H. Pylori / CLO Test Negative
== END 2023-02-23 12:55 | disposition home or self-care (01) ==
LOC: ER 17:47 → MEDSURG 18:03
PROVIDERS: Specialist; Admitting Provider Internal Medicine; Emergency Provider Emergency Medicine; PCP Nurse Practitioner Family; Visit Provider Internal Medicine
PROC: 0DJ08ZZ Inspection of Upper Intestinal Tract, Via Natural or Artificial Opening Endoscopic (ICD-10-PCS; CPT 43235; principal; 2023-02-23 09:30)
DX: K92.2 Gastrointestinal hemorrhage, unspecified (principal); B96.81 Helicobacter pylori [H. pylori] as the cause of diseases classified elsewhere; D72.829 Elevated white blood cell count, unspecified; E87.6 Hypokalemia; E86.0 Dehydration; K76.0 Fatty (change of) liver, not elsewhere classified; E87.20 Acidosis, unspecified; K20.90 Esophagitis, unspecified without bleeding; K44.9 Diaphragmatic hernia without obstruction or gangrene
CPT/HCPCS: 36415; 43239; 71046; 74177; 80053; 81003; 83605; 83690; 83735; 84100; 84145; 85014; 85018; 85025; 85610; 85651; 86140; 87040; 87077; 88305; 88342; 96365; 96366; 96375; 99285; C9113; G0378; J2704; J3480; J3490; J7030; Q9967